=== PATIENT | male | born 1985 | race Hispanic/Latino ===

== ENCOUNTER 2019-08-07 10:23 | Emergency (ER) | payer OTHER, SELFPAY ==
[2019-08-08 15:32] LABS: SARS-CoV-2 MS2 Positive; SARS-CoV-2 N Gene Negative; SARS-CoV-2 S Gene Negative; SARS-CoV-2 orf1ab Negative
== END 2019-08-07 11:12 | disposition home or self-care (01) ==
LOC: ERS 10:23
DX: Z20.828 Contact with and (suspected) exposure to other viral communicable diseases (principal); F41.9 Anxiety disorder, unspecified
CPT/HCPCS: 87635; 99283; U0003

== ENCOUNTER 2020-04-18 08:39 | Emergency (ER) | payer OTHER, SELFPAY ==
[2020-04-18] MEDS ORDERED: Iopamidol-370 76% 500 ML 1 ML ONE (10:50)
== END 2020-04-18 11:26 | disposition home or self-care (01) ==
LOC: ERS 08:39
DX: U07.1 COVID-19 (principal); J12.82 Pneumonia due to coronavirus disease 2019
CPT/HCPCS: 36415; 71045; 71275; 80053; 85025; 87635; 93005; Q9967; U0003; U0005

== ENCOUNTER 2020-04-22 22:51 | Emergency (ER) | payer SELFPAY | END 2020-04-22 23:29 | disposition home or self-care (01) | LOC: ERS 22:51 | DX: U07.1 COVID-19 (principal) | CPT/HCPCS: 71045 ==